=== PATIENT | female | born 1990 | race African-American/Black ===

== ENCOUNTER 2018-02-18 08:44 | Emergency (ER) | payer OTHER ==
[2018-02-18 08:52] VITALS: BP 116/78; PULSE 85; TEMP 98.7; BMI 32.9
--- NOTE | 2018-02-18 09:12 | PDOC ---
History of Present Illness - General Chief Complaint: Injury Stated Complaint: REVISIT, ARM PAIN Time Seen by Provider: 02/18/18 09:10 History Source: Patient Exam Limitations: No Limitations - History of Present Illness Initial Comments: CHIEF COMPLAINT: 27 y/o female c/o right elbow pain x 3 weeks. HISTORY OF PRESENT ILLNESS: The patient was seen here on 02/13 for same symptoms but left before getting xray. She states she hit her elbow on the wall 3 weeks ago and it's been sore ever since. She states it hurts when she fully extends it or tries to turn her arm. She denies numbness and tingling. 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 Vital signs on arrival are within normal limits. REVIEW OF SYSTEMS: GENERAL/CONSTITUTIONAL: No fever/chills. No weakness. No weight change. MUSCULOSKELETAL: +right elbow pain. No neck or back pain. NEUROLOGIC: No headache, vertigo, loss of consciousness, or loss of sensation. PHYSICAL EXAM: GENERAL_APPEARANCE: alert, cooperative, mild obvious discomfort. MENTAL_STATUS: speech clear, oriented X 3, responds appropriately to questions. NEURO: motor intact and sensory intact in injured extremity. EXTREMITIES: good pulse in injured extremity. Minimal TTP of lateral epicondyle of right elbow. No edema, erythema or warmth to affected extremity. Full flexion, extension, pronation and supination of right forearm. SKIN: warm, dry, good color. Past History - Past Medical History Allergies/Adverse Reactions: Allergies Allergy/AdvReac Type Severity Reaction Status Date / Time No Known Allergies Allergy Verified 02/18/18 08:46 Home Medications: Ambulatory Orders NK [No Known Home Medication] 02/13/18 Anemia: No Asthma: No Cancer: No Cardiac Disorders: No CVA: No COPD: No CHF: No Dementia: No Diabetes: No GI Disorders: No Disorders: No HTN: No Hypercholesterolemia: No Liver Disease: No Seizures: No Thyroid Disease: No - Immunization History Immunization Up to Date: Yes - Suicide/Smoking/Psychosocial Hx Smoking History: Current every day smoker Have you smoked in the past 12 months: No Number of Cigarettes Smoked Daily: 1 Information on smoking cessation initiated: No Hx Alcohol Use: Yes Drug/Substance Use Hx: No Substance Use Type: Alcohol Hx Substance Use Treatment: No *Physical Exam - Vital Signs Last Vital Signs Temp Pulse Resp BP Pulse Ox 98.7 F 85 16 116/78 99 02/18/18 08:46 02/18/18 08:46 02/18/18 08:46 02/18/18 08:46 02/18/18 08:46 Medical Decision Making - Medical Decision Making A/P: 27 y/o female with right elbow pain x 3 weeks. will send for xray. Xray right elbow IMPRESSION: (wet read) No acute fracture. No fat pad seen. Suggested patient ice elbow, take motrin, try to avoid lifting/repetitive movements and f/u with Dr. Redd within 1 week. The patient verbalizes understanding of all instructions, has no further questions and is awaiting discharge. *DC/Admit/Observation/Transfer Diagnosis at time of Disposition: Right elbow pain - Discharge Dispostion Disposition: HOME Condition at time of disposition: Good - Referrals Referrals: Van Redd MD [Staff Physician] - 1 week - Patient Instructions Printed Discharge Instructions: How To Perform RICE (Rest, Ice, Compress, Elevate), DI for Elbow Pain Additional Instructions: Discharge Instructions: -The xray of your elbow was normal -Please ice your elbow multiple times per day -Take Motrin for pain every 6 hours if needed with food -Follow up with Dr. Redd within 1 week if no improvement in symptoms - Post Discharge Activity
== END 2018-02-18 09:38 | disposition home or self-care (01) ==
LOC: JERFT 08:44
DX: M25.521 Pain in right elbow (principal); W22.01XD Walked into wall, subsequent encounter
CPT/HCPCS: 73070-TC-RT-FY; 99281-25

== ENCOUNTER 2018-07-06 09:27 | Emergency (ER) | payer OTHER ==
[2018-07-06 09:40] VITALS: BP 120/81; PULSE 70; TEMP 98.4; BMI 34.7
--- NOTE | 2018-07-06 09:50 | PDOC ---
History of Present Illness - General History Source: Patient - History of Present Illness Timing/Duration: reports: constant <Florian Hicks - Last Filed: 07/06/18 11:37> <CarrilloJenniferKatia Fatou - Last Filed: 07/09/18 07:17> - General Chief Complaint: Vaginal Bleeding Stated Complaint: VAGINAL BLEEDING Time Seen by Provider: 07/06/18 09:48 Past History - Past Medical History Anemia: No Asthma: No Cancer: No Cardiac Disorders: No CVA: No COPD: No CHF: No Dementia: No Diabetes: No GI Disorders: No Disorders: No HTN: No Hypercholesterolemia: No Liver Disease: No Seizures: No Thyroid Disease: No - Immunization History Immunization Up to Date: Yes - Suicide/Smoking/Psychosocial Hx Smoking History: Never smoked Have you smoked in the past 12 months: No Number of Cigarettes Smoked Daily: 1 Hx Alcohol Use: No Drug/Substance Use Hx: No Substance Use Type: Alcohol Hx Substance Use Treatment: No <Florian Hicks - Last Filed: 07/06/18 11:37> <Katia Carrillo - Last Filed: 07/09/18 07:17> - Past Medical History Allergies/Adverse Reactions: Allergies Allergy/AdvReac Type Severity Reaction Status Date / Time No Known Allergies Allergy Verified 02/18/18 08:46 Home Medications: Ambulatory Orders NK [No Known Home Medication] 02/13/18 Review of Systems - Review of Systems Constitutional: No: Chills, Fever ABD/GI: Yes: Nausea, Abdominal cramping. No: Vomiting : No: Dysuria Musculoskeletal: No: Back Pain <Florian Hicks - Last Filed: 07/06/18 11:37> *Physical Exam - Vital Signs Last Vital Signs Temp Pulse Resp BP Pulse Ox 98.4 F 70 17 120/81 99 07/06/18 09:38 07/06/18 09:38 07/06/18 09:38 07/06/18 09:38 07/06/18 09:38 - Physical Exam General Appearance: Yes: Appropriately Dressed. No: Apparent Distress HEENT: positive: Normal Voice Neck: positive: Supple Respiratory/Chest: negative: Respiratory Distress Female Pelvic Exam: positive: other (declines pelvic exam) Gastrointestinal/Abdominal: positive: Soft. negative: Tender Musculoskeletal: negative: CVA Tenderness Integumentary: positive: Dry, Warm Neurologic: positive: Fully Oriented, Alert, Normal Mood/Affect <KurtRaynaReggieIvette - Last Filed: 07/06/18 11:37> - Vital Signs Last Vital Signs Temp Pulse Resp BP Pulse Ox 98.4 F 70 17 120/81 99 07/06/18 09:38 07/06/18 09:38 07/06/18 09:38 07/06/18 09:38 07/06/18 09:38 <Katia Carrillo - Last Filed: 07/09/18 07:17> Moderate Sedation - Procedure Monitoring Vital Signs: Procedure Monitoring Vital Signs Temperature 98.4 F 07/06/18 09:38 Pulse Rate 70 07/06/18 09:38 Respiratory Rate 17 07/06/18 09:38 Blood Pressure 120/81 07/06/18 09:38 O2 Sat by Pulse Oximetry (%) 99 07/06/18 09:38 <KurtRayna-Ivette - Last Filed: 07/06/18 11:37> - Procedure Monitoring Vital Signs: Procedure Monitoring Vital Signs Temperature 98.4 F 07/06/18 09:38 Pulse Rate 70 07/06/18 09:38 Respiratory Rate 17 07/06/18 09:38 Blood Pressure 120/81 07/06/18 09:38 O2 Sat by Pulse Oximetry (%) 99 07/06/18 09:38 <Katia Carrillo - Last Filed: 07/09/18 07:17> Medical Decision Making - Medical Decision Making 07/06/18 09:49 27 yo F, , tested + on home preg test 3 days ago, unsure how far along she is as currently taking OCPs (though non-compliant), and gets menses irregularly, here w/ vaginal bleeding x 2 days, improved today w/ some abd cramping. No clots. Had nausea yesterday that has resolved. No vomiting or dysuria See exam 1st trimester bleed R/o ectopic vs spon AB vs vag bleed in nl preg -UA -beta -T&S -US 07/06/18 10:05 07/06/18 11:38 Beta >1K w/ irreg gestational sac in utero, unlikely viability per radiology, no yolk sac/ pole seen, no adnexal mass. RH+. UA w/ no e/o infxn. Stable for dc w/ OTOLOGIST f/u in 2 days 07/06/18 11:39 <Florian Hicks - Last Filed: 07/06/18 11:37> - Medical Decision Making The patient was seen and evaluated in conjunction with midlevel provider under my direct supervision, ancillary studies were reviewed. I agree with the plan as outlined by REINALDO. HPI, workup/dispo as outlined. 07/09/18 07:17 <Katia Carrillo - Last Filed: 07/09/18 07:17> *DC/Admit/Observation/Transfer <Florian Hicks - Last Filed: 07/06/18 11:37> <Katia Carrillo - Last Filed: 07/09/18 07:17> Diagnosis at time of Disposition: Threatened - Discharge Dispostion Disposition: HOME Condition at time of disposition: Stable - Patient Instructions Printed Discharge Instructions: Threatened Additional Instructions: Your ultrasound showed what appears to be an early intrauterine that may not be viable as per the radiology report. Your hormone level (beta HCG) today was 1185 and you are are RH positive (part of your blood type). Your urine showed no signs of infection. Please follow-up with her OTOLOGIST in 2 days for repeat evaluation - Post Discharge Activity Forms/Work/School Notes: Back to Work
[2018-07-06 11:03] LABS: HCG,QUALITATIVE URINE Positive
[2018-07-06 11:20] LABS: URINE APPEARANCE SLCLOUDY; URINE BILIRUBIN NEGATIVE (<2.0 mg/dL); URINE COLOR YELLOW; URINE GLUCOSE (UA) NEGATIVE (NEGATIVE); URINE KETONE NEGATIVE (NEGATIVE); URINE LEUK ESTERASE NEGATIVE (NEGATIVE); URINE NITRITE NEGATIVE (NEGATIVE); URINE PROTEIN 1+ (NEGATIVE)
[2018-07-06 11:35] LABS: EPI CELLS RARE /HPF (FEW); URINE MUCUS MANY
== END 2018-07-06 12:11 | disposition home or self-care (01) ==
LOC: JER 09:27
DX: O26.891 Other specified pregnancy related conditions, first trimester (principal); O20.0 Threatened abortion; Z3A.01 Less than 8 weeks gestation of pregnancy
CPT/HCPCS: 36415; 76817-TC; 81003; 81015; 84702; 84703; 86850; 86900; 86901; 99282-25

== ENCOUNTER 2018-07-09 17:37 | Emergency (ER) | payer OTHER ==
[2018-07-09 17:45] VITALS: BP 120/81; PULSE 74; TEMP 98; BMI 32.9
--- NOTE | 2018-07-09 17:46 | PDOC ---
Rapid Medical Evaluation Time Seen by Provider: 07/09/18 17:42 Medical Evaluation: Allergies Allergy/AdvReac Type Severity Reaction Status Date / Time No Known Allergies Allergy Verified 02/18/18 08:46 07/09/18 17:43 Pt c/o: repeat beta hcg, no abd pain, states continues to have light bleeding, here on tu and told to return in 48 hrs Pt on brief exam: vss, no abd tenderness Pt ordered for: beta hcg Pt to proceed to the ED Discharge Disposition - Diagnosis Vagina bleeding - Referrals - Patient Instructions - Post Discharge Activity
--- NOTE | 2018-07-09 18:25 | PDOC ---
History of Present Illness - General Chief Complaint: Revisit, Lab Variance Stated Complaint: LAB WORK, HCG Time Seen by Provider: 07/09/18 17:42 History Source: Patient Exam Limitations: No Limitations Past History - Past Medical History Allergies/Adverse Reactions: Allergies Allergy/AdvReac Type Severity Reaction Status Date / Time No Known Allergies Allergy Verified 07/09/18 17:45 Home Medications: Ambulatory Orders NK [No Known Home Medication] 02/13/18 Anemia: No Asthma: No Cancer: No Cardiac Disorders: No CVA: No COPD: No CHF: No Dementia: No Diabetes: No GI Disorders: No Disorders: No HTN: No Hypercholesterolemia: No Liver Disease: No Seizures: No Thyroid Disease: No - Reproductive History (#): 5 Para: 2 Spontaneous : 2 - Immunization History Immunization Up to Date: Yes - Suicide/Smoking/Psychosocial Hx Smoking History: Never smoked Have you smoked in the past 12 months: No Number of Cigarettes Smoked Daily: 1 Information on smoking cessation initiated: No Hx Alcohol Use: No Drug/Substance Use Hx: No Substance Use Type: Alcohol Hx Substance Use Treatment: No *Physical Exam - Vital Signs Last Vital Signs Temp Pulse Resp BP Pulse Ox 98 F 74 17 120/81 100 07/09/18 17:43 07/09/18 17:43 07/09/18 17:43 07/09/18 17:43 07/09/18 17:43 - Physical Exam General Appearance: No: Apparent Distress Respiratory/Chest: positive: Lungs Clear, Normal Breath Sounds. negative: Respiratory Distress Cardiovascular: positive: Regular Rhythm, Regular Rate, S1, S2. negative: Murmur Gastrointestinal/Abdominal: positive: Normal Bowel Sounds, Soft. negative: Tender, Distended, Guarding, Rebound Neurologic: positive: Alert, Normal Mood/Affect Moderate Sedation - Procedure Monitoring Vital Signs: Procedure Monitoring Vital Signs Temperature 98 F 07/09/18 17:43 Pulse Rate 74 07/09/18 17:43 Respiratory Rate 17 07/09/18 17:43 Blood Pressure 120/81 07/09/18 17:43 O2 Sat by Pulse Oximetry (%) 100 07/09/18 17:43 Medical Decision Making - Medical Decision Making 27 y/o F with no sig pmh , currently , LNMP 05/05, seen in ED for vaginal bleeding and found to have likely unviable , returns to ED for repeat Bhcg as was advised to have it rechecked in 48 hours. States was unable to f/u with her HEAVY EQUIPMENT RENTAL MANAGER so was told she could come to the ED. Is still having some light vaginal bleeding. Patient was RH positive that positive. Denies fever, sob, cp, abd pain, n/v. Repeat Bhcg pending 07/09/18 18:24 Bhcg has dropped to 93.2 Patient likely having miscarriage Advised to f/u with her HEAVY EQUIPMENT RENTAL MANAGER to continue trend of Bhcg 07/09/18 18:34 *DC/Admit/Observation/Transfer Diagnosis at time of Disposition: Miscarriage - Discharge Dispostion Disposition: HOME Condition at time of disposition: Stable Decision to Admit order: No - Referrals - Patient Instructions Printed Discharge Instructions: DI for Miscarriage Additional Instructions: Thank you for choosing [facility]. It was a pleasure taking care of you. Your Bhcg ( level) is dropping, indicating you are likely having a miscarriage Please continue to follow-up with your analytical engineer to continue trending the Bhcg level. Return to the Emergency Department if your symptoms worsen or persist or have other concerning symptoms. - Post Discharge Activity
== END 2018-07-09 18:42 | disposition home or self-care (01) ==
LOC: JERFT 17:37 → JER 17:37 → JERFT 18:42
DX: O03.9 Complete or unspecified spontaneous abortion without complication (principal)
CPT/HCPCS: 36415; 84702; 99281-25

== ENCOUNTER 2021-01-05 14:02 | Emergency (ER) | payer OTHER ==
[2021-01-05 14:15] VITALS: BP 121/58; PULSE 79; TEMP 98.5; BMI 37.4
== END 2021-01-05 15:15 | disposition home or self-care (01) ==
LOC: JER 14:02 → JERFT 14:02
DX: B35.3 Tinea pedis (principal)
CPT/HCPCS: 99283-25